=== PATIENT | male | born 1970 | race Caucasian/White ===

== ENCOUNTER 2018-07-06 06:22 | Emergency (ER) | payer MEDICAID, OTHER ==
[2018-07-06] MEDS: FUROSEMIDE 20 MG TAB PO (06:55)
[2018-07-06] MEDS: NICARDipine HCL 30 MG CAPSULE PO (06:56)
== END 2018-07-06 07:51 | disposition home or self-care (01) ==
LOC: E/R 06:22
DX: L50.9 Urticaria, unspecified (principal); R60.9 Edema, unspecified; I10 Essential (primary) hypertension
CPT/HCPCS: 93005; 99283-25